=== PATIENT | male | born 1995 | race Two or more races ===

== ENCOUNTER 2022-08-01 18:22 | Emergency (ER) | payer OTHER, MEDICAID ==
[~2022-08-01] VITALS: Ht 175.3 cm; Wt 75.0 kg
[2022-08-01 19:30] VITALS: BP 109/55
[2022-08-01] MEDS ORDERED: TETANUS-DIPTH-ACEL PERTUSSIS 0.5ML SYR Tdap IM ONE (22:45)
[2022-08-01] MEDS ORDERED: ACET-1158 PO (22:54)
[2022-08-01] MEDS ORDERED: CEPH-510 PO (22:54)
== END 2022-08-02 02:17 | disposition home or self-care (01) ==
LOC: ER 18:22
DX: S01.01XA Laceration without foreign body of scalp, initial encounter (principal); F17.210 Nicotine dependence, cigarettes, uncomplicated; W22.8XXA Striking against or struck by other objects, initial encounter; Y93.89 Activity, other specified; Y92.89 Other specified places as the place of occurrence of the external cause; Y99.8 Other external cause status
CPT/HCPCS: 12001; 90471; 90715